=== PATIENT | male | born 1980 | race Caucasian/White ===

== ENCOUNTER 2016-03-18 02:06 | Emergency (ER) | payer OTHER ==
[2016-03-18 02:31] VITALS: BP 147/75; PULSE 79; TEMP 97.9; BMI 28.8
--- NOTE | 2016-03-18 02:51 | PDOC ---
History of Present Illness - General History Source: Patient <Dalton Gorman - Last Filed: 03/18/16 03:39> - General History Source: Patient Exam Limitations: No Limitations - History of Present Illness Initial Comments: 03/18/16 02:52 The patient is a 35-year-old male with no significant past medical history, who presents to the emergency department with a small laceration to his forehead s/ p mechanical fall about an hour ago. The patient reports he was walking outside when he slipped and hit his head on a metal fence. He reports he was on his own and was able to get up on his own. The patient denies any associated loss of consciousness. Since the injury, the patient reports pain to the occipital region upon movement of his head. The patient denies fever, chills, cough, or dizziness. He denies any weakness, numbness, or paresthesias. He denies nausea or vomiting. Allergies: None reported. Past Surgical History: None reported. Social History: Non-smoker. Denies alcohol or drug use. <Jocelyn Gonsalves - Last Filed: 03/18/16 04:15> - General Chief Complaint: Injury Stated Complaint: FALL/HEAD INJURY Time Seen by Provider: 03/18/16 02:31 Past History - Psycho/Social/Smoking Cessation Hx Suicidal Ideation: No Smoking History: Never smoked Have you smoked in the past 12 months: No Information on smoking cessation initiated: No Hx Alcohol Use: No Drug/Substance Use Hx: No <Dalton Gorman - Last Filed: 03/18/16 03:39> <Jocelyn Gonsalves - Last Filed: 03/18/16 04:15> - Past Medical History Allergies/Adverse Reactions: Allergies Allergy/AdvReac Type Severity Reaction Status Date / Time No Known Allergies Allergy Verified 03/18/16 02:26 Home Medications: Ambulatory Orders Omeprazole Magnesium [Prilosec] 2.5 mg PO PRN 03/18/16 Review of Systems - Review of Systems Able to Perform ROS?: Yes Comments:: 03/18/16 02:52 CONSTITUTIONAL: Absent: fever, no chills, no fatigue EYES: Absent: visual changes ENT: Absent: ear pain, no sore throat CARDIOVASCULAR: Absent: chest pain, no palpitations RESPIRATORY: Absent: cough, no SOB GI: Absent: abdominal pain, no nausea, no vomiting, no constipation, no diarrhea GENITOURINARY: Absent: dysuria, no frequency, no hematuria MUSKULOSKELETAL: Absent: back pain, no arthralgia, no myalgia SKIN: Present: +small laceration above right eyebrow Absent: rash NEURO: Present: +headache <GonsalvesJocelyn - Last Filed: 03/18/16 04:15> *Physical Exam - Vital Signs Last Vital Signs Temp Pulse Resp BP Pulse Ox 97.9 F 79 20 147/75 100 03/18/16 02:29 03/18/16 02:29 03/18/16 02:29 03/18/16 02:29 03/18/16 02:29 <Dalton Gorman - Last Filed: 03/18/16 03:39> - Vital Signs Last Vital Signs Temp Pulse Resp BP Pulse Ox 97.9 F 79 20 147/75 100 03/18/16 02:29 03/18/16 02:29 03/18/16 02:29 03/18/16 02:29 03/18/16 02:29 - Physical Exam Comments: 03/18/16 02:53 GENERAL: Well-appearing, well-nourished. No apparent distress. HEENT: +1.5 cm clean/linear laceration above right eyebrow. Normocephalic. PERRL, EOM intact. CARDIOVASCULAR: Normal S1, S2. Regular rate and rhythm. PULMONARY: Clear to auscultation bilaterally. ABDOMEN: Soft, non-distended, non-tender. EXTREMITIES: Normal ROM in all four extremities. No gross deformities. SKIN: Warm, dry. No rash NEUROLOGICAL: No focal neurological deficits. <Manda Gonsalveschaparrolisandra - Last Filed: 03/18/16 04:15> ED Treatment Course - RADIOLOGY Radiograph Interpretation: 03/18/16 04:13 EXAM: CT of the cervical spine without contrast INTERPRETED BY: Dr. Jang REVIEWED BY: Dr. Gorman IMPRESSION: There is no fracture or facet subluxation. No prevertebral hematoma. Indeterminate age left eccentric C3/4 small disc protrusion contacting /deforming the thecal sac; correlate clinically. Alignment is anatomic for the visualized volume, from skull base to T2/3; presumed positional straightening of the normal lordosis. EXAM: CT of the brain without contrast INTERPRETED BY: Dr. Jang REVIEWED BY: Dr. Gorman IMPRESSION:There is no intracranial hemorrhage, vasogenic edema/gross contusion or fracture. Mild right frontal scalp contusion. <Jocelyn Gonsalves - Last Filed: 03/18/16 04:15> Medical Decision Making - Medical Decision Making 03/18/16 03:42 Dr. Gorman: The scribe's documentation has been prepared under my direction and personally reviewed by me in its entirery. I confirm that the note above accurately reflects all work, treatment, procedures, and medical decision making performed by me. <Dalton Gorman - Last Filed: 03/18/16 03:39> *DC/Admit/Observation/Transfer - Discharge Dispostion Admit: No <Dalton Gorman - Last Filed: 03/18/16 03:39> - Attestations Scribe Attestion: 03/18/16 02:55 Documentation prepared by Jocelyn Gonsalves, acting as biomedical instrument technician for Dalton Gorman DO. <Jocelyn Gonsalves - Last Filed: 03/18/16 04:15> Diagnosis at time of Disposition: Closed head injury Qualifiers: Encounter type: initial encounter Qualified Code(s): S09.90XA - Unspecified injury of head, initial encounter Abrasion of forehead Qualifiers: Encounter type: initial encounter Qualified Code(s): S00.81XA - Abrasion of other part of head, initial encounter - Discharge Dispostion Disposition: HOME Condition at time of disposition: Stable - Referrals Referrals: STAFF,NOT ON [Primary Care Provider] - - Patient Instructions Printed Discharge Instructions: DI for Closed Head Injury Additional Instructions: Keep wound clean and dry. Wash daily with soap and water after 24 hours. Apply sunblock when wound is healed to reduce lightening of scar.
[2016-03-18] MEDS ORDERED: TETANUS AND DIPHTHERIA TOXOID 0.5 ML DISP.SYRIN IM ONE (02:56)
--- NOTE | 2016-03-18 16:38 | PDOC ---
Patient Follow-up (Call Back) - Post ED Follow - Up Condition at time of discharge: Stable Disposition at time of original discharge: HOME Reason for Call Back: Radiology (Dr. Russo felt he needed an outpatient MRI of the brain. I called and informed him and he states he will f/u with his regular doctor.)
== END 2016-03-18 03:49 | disposition home or self-care (01) ==
LOC: JER 02:06
PROC: 3E0234Z Introduction of Serum, Toxoid and Vaccine into Muscle, Percutaneous Approach (ICD-10-PCS; principal; 2016-03-18)
DX: S01.81XA Laceration without foreign body of other part of head, initial encounter (principal); S09.90XA Unspecified injury of head, initial encounter; W18.39XA Other fall on same level, initial encounter; Y93.89 Activity, other specified; Y92.410 Unspecified street and highway as the place of occurrence of the external cause
CPT/HCPCS: 70450-TC; 72125-TC; 90471; 90715; 99282-25

== ENCOUNTER 2016-05-25 20:25 | Emergency (ER) | payer OTHER ==
[2016-05-25 21:09] VITALS: BP 150/81; PULSE 82; TEMP 98.6; BMI 29.6
[2016-05-25] MEDS ORDERED: KETOROLAC TROMETHAMINE 60 MG/2 ML VIAL IM ONE (21:44)
[2016-05-25] MEDS ORDERED: CYCLOBENZAPRINE HCL 10 MG TABLET (FP) PO ONE (21:44)
[2016-05-25] MEDS ORDERED: KETOROLAC TROMETHAMINE 60 MG/2 ML VIAL ONE (21:47)
[2016-05-25] MEDS ORDERED: CYCLOBENZAPRINE HCL 10 MG TABLET (FP) ONE (21:47)
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
== END 2016-05-25 21:56 | disposition home or self-care (01) ==
LOC: SUPCPDRO 20:25 → JERFT 20:25
PROC: 3E0233Z Introduction of Anti-inflammatory into Muscle, Percutaneous Approach (ICD-10-PCS; principal; 2016-05-25)
DX: S13.4XXA Sprain of ligaments of cervical spine, initial encounter (principal); V43.52XA Car driver injured in collision with other type car in traffic accident, initial encounter; Y93.89 Activity, other specified; Y92.410 Unspecified street and highway as the place of occurrence of the external cause
CPT/HCPCS: 99281-25

== ENCOUNTER 2016-06-02 02:14 | Emergency (ER) | payer OTHER ==
[2016-06-02 02:28] VITALS: TEMP 98.3; BMI 29.7
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
[2016-06-02] MEDS ORDERED: ONDANSETRON 4 MG/2 ML VIAL IVPUSH STA (02:43)
[2016-06-02] MEDS ORDERED: SODIUM CHLORIDE 1,000 ML IV STA (02:43)
[2016-06-02] MEDS ORDERED: ONDANSETRON 4 MG/2 ML VIAL ONE (02:50)
[2016-06-02 03:09] LABS: BASOPHIL 0.4 % (0-2.0); EOSINOPHIL 1.1 % (0-4.5); MCH 30.6 pg (25.7-33.7); MCHC 33.5 g/dl (32.0-35.9); MEAN CELL VOLUME 91.3 fl (80-96); MEAN PLT VOLUME 8.6 fl (7.5-11.1); PLATELET COUNT 181 K/MM3 (134-434); RDW 14.3 % (11.9-15.9); WHITE BLOOD COUNT 5.7 K/mm3 (4.0-10.0)
[2016-06-02 03:31] LABS: ALBUMIN 4.2 g/dl (3.4-5.0); ANION GAP 8 (8-16); BILIRUBIN,TOTAL 0.5 mg/dL (0.2-1.0); CALCIUM 8.7 mg/dL (8.5-10.1); CO2 28 mmol/L (21-32); GLUCOSE,RANDOM 208 mg/dL (74-106); SGPT/ALT 38 U/L (12-78); TOT PROT 7.4 g/dl (6.4-8.2)
[2016-06-02 03:33] LABS: ALK PHOS 74 U/L (45-117); TROPONIN I < 0.02 ng/ml (0.00-0.05)
[2016-06-02 03:34] LABS: MAGNESIUM 2.1 mg/dL (1.8-2.4); SGOT/AST 31 U/L (15-37)
[2016-06-02 04:39] VITALS: BP 128/74; PULSE 74
--- NOTE | 2016-06-02 12:19 | EKG ---
Test Reason : Blood Pressure : / mmHG Vent. Rate : 102 BPM Atrial Rate : 102 BPM P-R Int : 138 ms QRS Dur : 090 ms QT Int : 328 ms P-R-T Axes : 053 066 000 degrees QTc Int : 427 ms SINUS TACHYCARDIA CANNOT RULE OUT INFERIOR INFARCT , AGE UNDETERMINED ABNORMAL ECG NO PREVIOUS ECGS AVAILABLE Confirmed by BARON OCHOA MD ([id number]) on 06/02/2016 12:19:17 PM Referred By: Confirmed By:BARON OCHOA MD
== END 2016-06-02 05:03 | disposition home or self-care (01) ==
LOC: JER 02:14
PROC: 3E033GC Introduction of Other Therapeutic Substance into Peripheral Vein, Percutaneous Approach (ICD-10-PCS; principal; 2016-06-02)
DX: I10 Essential (primary) hypertension (principal); R00.2 Palpitations
CPT/HCPCS: 36415; 80053; 82550; 82553; 83690; 83735; 84484; 85025; 93005; 93010; 99283-25

== ENCOUNTER 2017-09-17 11:42 | Emergency (ER) | payer OTHER ==
[2017-09-17 12:02] VITALS: BP 131/81; PULSE 70; TEMP 98.6; BMI 31.1
[2017-09-17] MEDS ORDERED: DEXAMETHASONE SOD PHOSPHATE 10 MG/1 ML VIAL IM ONE (12:13)
[2017-09-17] MEDS ORDERED: DEXAMETHASONE SOD PHOSPHATE 10 MG/1 ML VIAL ONE (12:17)
--- NOTE | 2017-09-17 12:20 | PDOC ---
History of Present Illness - General Chief Complaint: Rash Stated Complaint: RASH (ALLERGIC RXN) Time Seen by Provider: 09/17/17 12:09 History Source: Patient Exam Limitations: Clinical Condition - History of Present Illness Initial Comments: 09/17/17 12:13 Patient with no sig PMhx present with complains of diffused hives all over the body for 3 days which started worsening since yesterday. report took a dose of benadryl yesterday for first time treatment w/o improvement. pt unsure what he is allergic to. Denies SOB, chocking sensation, palpitations, lip and tongue swelling Timing/Duration: other (3 days) Severity: moderate Associated Symptoms: denies: chest pain, headaches, syncope, weakness Aspirin Received prior to arrival: Yes: no aspirin today Past History - Past Medical History Allergies/Adverse Reactions: Allergies Allergy/AdvReac Type Severity Reaction Status Date / Time No Known Allergies Allergy Verified 09/17/17 12:02 Home Medications: Ambulatory Orders Hydrocortisone 2.5% Topical Cr [Anusol-Hc -] 1 applic RC BID PRN #1 tube Hydroxyzine HCl 25 mg PO TID PRN #12 tablet 09/17/17 Prednisone [Deltasone] 20 mg PO BID 5 Days #10 tablet 09/17/17 - Suicide/Smoking/Psychosocial Hx Smoking History: Never smoked Have you smoked in the past 12 months: No Information on smoking cessation initiated: No Hx Alcohol Use: No Drug/Substance Use Hx: No Substance Use Type: None Review of Systems - Review of Systems Able to Perform ROS?: Yes Is the patient limited Tongan proficient: No Constitutional: No: Chills, Diaphoresis, Fever, Loss of Appetite, Malaise, Night Sweats, Weakness, Weight Stable, Unintentional Wgt. Loss, Unexplained wgt Loss, Other HEENTM: No: Eye Pain, Blurred Vision, Tearing, Recent change in vision, Double Vision, Cataracts, Ear Pain, Ocular Prothesis, Ear Discharge, Nose Pain, Nose Congestion, Tinnitus, Nose Bleeding, Hearing Loss, Throat Pain, Throat Swelling , Mouth Pain, Dental Problems, Difficulty Swallowing, Mouth Swelling, Other Respiratory: No: Cough, Orthopnea, Shortness of Breath, SOB with Exertion, SOB at Rest, Stridor, Wheezing, Productive cough, Hemoptysis, Other Cardiac (ROS): No: Chest Pain, Edema, Irregular Heart Rate, Lightheadedness, Palpitations, Syncope, Chest Tightness, Other ABD/GI: No: Abdominal Distended, Abd. Pain w/ defecation, Blood Streaked Bowels , Constipated, Diarrhea, Difficulty Swallowing, Nausea, Poor Appetite, Poor Fluid Intake, Rectal Bleeding, Vomiting, Indigestion, Abdominal cramping, Tarry Stools, Other : No: Burning, Dysuria, Discharge, Frequency, Flank Pain, Hematuria, Incontinence, Pain, Urgency, Testicular Mass, Testicular Swelling, Lesions, Testicular Pain, Other Musculoskeletal: No: Back Pain, Gout, Joint Pain, Joint Swelling, Muscle Pain, Muscle Weakness, Neck Pain, Joint Stiffness, Other Integumentary: Yes: Pruritus (all over the body), Rash (diffused all over the body) Neurological: No: Headache, Numbness, Paresthesia, Pre-Existing Deficit, Seizure , Tingling, Tremors, Weakness, Unsteady Gait, Ataxia, Dizziness, Other Psychiatric: No: Anxiety, Depression, Frequent Crying, Stressors, Sleep Pattern Change, Emotional Problems, Mood Swings, Change in Appetite, Other Endocrine: No: Intolerance to Heat All Other Systems: Reviewed and Negative *Physical Exam - Vital Signs Last Vital Signs Temp Pulse Resp BP Pulse Ox 98.6 F 70 18 131/81 98 09/17/17 11:57 09/17/17 11:57 09/17/17 11:57 09/17/17 11:57 09/17/17 11:57 - Physical Exam General Appearance: Yes: Nourished, Appropriately Dressed. No: Apparent Distress HEENT: positive: ODALIS, Normal ENT Inspection, Normal Voice, TMs Normal, Pharynx Normal Neck: positive: Trachea midline, Supple Respiratory/Chest: positive: Lungs Clear, Normal Breath Sounds. negative: Respiratory Distress, Accessory Muscle Use Cardiovascular: positive: Regular Rhythm, Regular Rate, S1, S2 Gastrointestinal/Abdominal: positive: Flat, Soft Musculoskeletal: positive: Normal Inspection Extremity: positive: Normal Capillary Refill Integumentary: positive: Rash (diffused urticarial erythematous rash all over the body w/o excoriations ) Neurologic: positive: Fully Oriented, Alert, Normal Mood/Affect, Normal Response Medical Decision Making - Medical Decision Making 09/17/17 12:18 Patient presenting with complains of diffused hives w/o respiratory compromise or anaphylactic reaction. likely allergic contact dermatitis. Decadron 10IM and benadryl 50mg IM ordered. observe for 10mins. d/c home if stable with outpt treatment and dermatology follow-up *DC/Admit/Observation/Transfer Diagnosis at time of Disposition: Hives Contact dermatitis Qualifiers: Contact dermatitis type: unspecified Contact dermatitis trigger: unspecified trigger Qualified Code(s): L25.9 - Unspecified contact dermatitis, unspecified cause - Discharge Dispostion Disposition: HOME Condition at time of disposition: Good Decision to Admit order: No - Prescriptions Prescriptions: Hydrocortisone 2.5% Topical Cr [Anusol-Hc -] 1 applic RC BID PRN #1 tube PRN Reason: rash Hydroxyzine HCl 25 mg PO TID PRN #12 tablet PRN Reason: rash and itching Prednisone [Deltasone] 20 mg PO BID 5 Days #10 tablet - Referrals Referrals: Constantino Leong MD [Non Staff, Medical] - - Patient Instructions Printed Discharge Instructions: Contact Dermatitis Additional Instructions: take medication as prescribed. follow-up with dermatology if symptoms persist - Post Discharge Activity
== END 2017-09-17 12:33 | disposition home or self-care (01) ==
LOC: JERFT 11:42
PROC: 3E0233Z Introduction of Anti-inflammatory into Muscle, Percutaneous Approach (ICD-10-PCS; principal; 2017-09-17)
PROC: 3E023GC Introduction of Other Therapeutic Substance into Muscle, Percutaneous Approach (ICD-10-PCS; 2017-09-17)
DX: L50.9 Urticaria, unspecified (principal); L25.9 Unspecified contact dermatitis, unspecified cause
CPT/HCPCS: 96372; 99281-25; J1100